=== PATIENT | male | born 1945 | race Caucasian/White ===

== ENCOUNTER 2021-03-15 12:08 | Inpatient (IN) | payer MEDICARE ==
[~2021-03-15] VITALS: Ht 175.3 cm; Wt 74.8 kg
[2021-03-15] MEDS ORDERED: ONDANSETRON HCL INJ 2MG/ML 2ML 2 MG/ML VIAL IV STA (12:25)
[2021-03-15] MEDS ORDERED: SODIUM CHLORIDE 0.9% 1000ML 1,000 ML IV STA (12:25)
[2021-03-15 13:08] LABS: BASOPHILS % 0.2 % (0.0-1.0); EOSINOPHILS # (AUTO) 0.1 (0.0-0.4); EOSINOPHILS % 0.6 % (0.0-6.0); HEMATOCRIT 41.8 % (38.2-49.6); HEMOGLOBIN 13.3 g/dL (14.0-18.0); LYMPHOCYTES # (AUTO) 2.9 (1.0-3.2); LYMPHOCYTES % 16.8 % (18.0-39.1); MEAN CORPUSCULAR HEMOGLOBIN 30.7 pg (28-32); MEAN CORPUSCULAR HGB CONC 31.8 g/dL (31-35); MEAN CORPUSCULAR VOLUME 96.5 fL (81-99); MONOCYTES # (AUTO) 1.4 (0.2-0.8); NEUTROPHILS # (AUTO) 12.5 (2.1-6.9); NEUTROPHILS % 73.8 % (38.7-80.0); PLATELET COUNT 380 x10e3/uL (140-360); RED BLOOD COUNT 4.33 x10e6/uL (4.3-5.7); RED CELL DISTRIBUTION WIDTH 15.2 % (11.7-14.4)
[2021-03-15 13:16] LABS: INR 1.32; PROTHROMBIN TIME 17.1 seconds (11.9-14.5)
[2021-03-15 13:17] LABS: PARTIAL THROMBOPLASTIN TIME 40.5 seconds (23.8-35.5)
[2021-03-15 13:29] LABS: ALBUMIN 3.3 g/dL (3.5-5.0); ANION GAP 17.6 mmol/L (8-16); CALCIUM 8.4 mg/dL (8.4-10.2); CREATININE, SERUM 5.25 mg/dL (0.72-1.25); MAGNESIUM 1.6 MG/DL (1.3-2.1); POTASSIUM 4.6 mmol/L (3.5-5.1)
[2021-03-15 13:35] LABS: CREATINE KINASE MB 1.9 ng/mL (0-5.0)
[2021-03-15] MEDS ORDERED: SODIUM CHLORIDE 0.9% 250ML 250 ML ONE (13:49)
[2021-03-15] MEDS ORDERED: MORPHINE SULFATE INJ 4 MG/ML INJ 1ML IV PRN (17:30)
[2021-03-15] MEDS ORDERED: ONDANSETRON HCL INJ 2MG/ML 2ML 2 MG/ML VIAL IV PRN (17:30)
[2021-03-15] MEDS ORDERED: SODIUM CHLORIDE 0.9% 1000ML 1,000 ML IV SCH (17:30)
[2021-03-15 18:26] LABS: CLARITY,URINE SL CLOUDY (CLEAR); COLOR,URINE YELLOW (YELLOW); KETONES,URINE TRACE (NEGATIVE); LEUKOCYTE ESTERASE ,URINE NEGATIVE (NEGATIVE); NITRITE,URINE NEGATIVE (NEGATIVE); PROTEIN,URINE DIPSTICK >=300 (NEGATIVE); URINE UROBILINOGEN 0.2 mg/dL (0.2 - 1)
[2021-03-15 18:39] LABS: AMORPHOUS SEDIMENT,URINE MODERATE (FEW); BACTERIA,URINE RARE /HPF; EPITHELIAL CELLS,URINE FEW /LPF; RBC,URINE 0-5 /HPF (0-5); WBC,URINE (MAN) 0-5 /HPF (0-5)
[2021-03-15] MEDS: LACTATED RINGER'S 1,000 ML INJ SCH (21:15)
[2021-03-15 21:37] VITALS: BP 139/89
[2021-03-15 23:07] VITALS: BP 139/89
[2021-03-15 23:36] VITALS: BP 139/89
[2021-03-16] VITALS (8 sets, daily range): BP systolic 125–159; BP diastolic 49–70
[2021-03-16 04:58] LABS: BASOPHILS % 0.2 % (0.0-1.0); EOSINOPHILS # (AUTO) 0.1 (0.0-0.4); HEMATOCRIT 37.4 % (38.2-49.6); LYMPHOCYTES # (AUTO) 2.4 (1.0-3.2); MEAN CORPUSCULAR HEMOGLOBIN 30.7 pg (28-32); MEAN CORPUSCULAR HGB CONC 32.1 g/dL (31-35); MEAN CORPUSCULAR VOLUME 95.7 fL (81-99); MONOCYTES # (AUTO) 1.3 (0.2-0.8); MONOCYTES % 11.2 % (4.4-11.3); NEUTROPHILS # (AUTO) 7.5 (2.1-6.9); NEUTROPHILS % 66.2 % (38.7-80.0); PLATELET COUNT 323 x10e3/uL (140-360); RED BLOOD COUNT 3.91 x10e6/uL (4.3-5.7); RED CELL DISTRIBUTION WIDTH 15.2 % (11.7-14.4)
[2021-03-16 05:08] LABS: INR 1.27; PROTHROMBIN TIME 16.6 seconds (11.9-14.5)
[2021-03-16 05:09] LABS: PARTIAL THROMBOPLASTIN TIME 41.4 seconds (23.8-35.5)
[2021-03-16] MEDS: LACTATED RINGER'S 1,000 ML INJ SCH (05:15)
[2021-03-16 05:35] LABS: ALBUMIN 2.7 g/dL (3.5-5.0); ALBUMIN/GLOBULIN RATIO 1.1 (0.8-2.0); ANION GAP 12.4 mmol/L (8-16); CALCIUM 8.1 mg/dL (8.4-10.2); CREATININE, SERUM 5.48 mg/dL (0.72-1.25); POTASSIUM 4.4 mmol/L (3.5-5.1)
[2021-03-16] MEDS ORDERED: DEXTROSE 50% SYRINGE 50 ML IV ONE ×2 (06:01→15:54)
[2021-03-16] MEDS: DEXTROSE 5%/0.9% SOD CHL 1,000 ML IV SCH ×2 (06:45→16:07)
[2021-03-16] MEDS ORDERED: HYDRALAZINE HCL 20 MG/ML VIAL IV PRN (14:30)
[2021-03-16] MEDS ORDERED: CLONIDINE HCL 0.1 MG TAB PO PRN (14:30)
[2021-03-16] MEDS: HYDRALAZINE HCL 25 MG TAB PO SCH ×2 (15:00→21:22)
[2021-03-16] MEDS: AMLODIPINE BESYLATE 5 MG TAB PO SCH (16:14)
[2021-03-16] MEDS: CARVEDILOL 3.125 MG TAB PO SCH (17:00)
[2021-03-16] MEDS: ATORVASTATIN 20 MG TAB PO SCH (21:22)
[2021-03-16] MEDS: GABAPENTIN 300 MG CAP PO SCH (21:22)
[2021-03-16] MEDS: HEPARIN SOD (PORCINE) 5,000 UNIT/ML VIAL SC SCH (22:05)
[2021-03-17] VITALS (8 sets, daily range): BP systolic 158–178; BP diastolic 62–72
[2021-03-17] MEDS: BENZONATATE 100 MG CAP PO PRN ×2 (00:10→21:42)
[2021-03-17] MEDS: DEXTROSE 5%/0.9% SOD CHL 1,000 ML IV SCH ×2 (03:00→12:45)
[2021-03-17 06:49] LABS: ANION GAP 14.3 mmol/L (8-16); CALCIUM 7.7 mg/dL (8.4-10.2); CREATININE, SERUM 5.17 mg/dL (0.72-1.25); POTASSIUM 4.3 mmol/L (3.5-5.1)
[2021-03-17] MEDS: AMLODIPINE BESYLATE 5 MG TAB PO SCH ×2 (09:25→18:00)
[2021-03-17] MEDS: SERTRALINE HCL 100 MG TAB PO SCH (09:25)
[2021-03-17] MEDS: ALLOPURINOL 100 MG TAB PO SCH (09:25)
[2021-03-17] MEDS: HEPARIN SOD (PORCINE) 5,000 UNIT/ML VIAL SC SCH ×2 (09:27→21:15)
[2021-03-17] MEDS: HYDRALAZINE HCL 25 MG TAB PO SCH ×3 (09:31→21:15)
[2021-03-17] MEDS: CARVEDILOL 3.125 MG TAB PO SCH ×2 (09:31→18:00)
[2021-03-17] MEDS ORDERED: ACETAMINOPHEN/CODEINE 300MG - 30MG TAB PO PRN (13:30)
[2021-03-17] MEDS ORDERED: ACETAMINOPHEN 325 MG TAB PO PRN (13:30)
[2021-03-17] MEDS ORDERED: METOPROLOL TARTRATE INJ 1 MG/ML VIAL IV PRN (19:45)
[2021-03-17] MEDS: ATORVASTATIN 20 MG TAB PO SCH (21:15)
[2021-03-17] MEDS: GABAPENTIN 300 MG CAP PO SCH (21:15)
[2021-03-17] MEDS: MORPHINE SULFATE INJ 2 MG/ML SYR IV PRN (21:42)
[2021-03-18] VITALS (8 sets, daily range): BP systolic 147–164; BP diastolic 64–82
[2021-03-18] MEDS: MORPHINE SULFATE INJ 2 MG/ML SYR IV PRN ×5 (00:10→21:05)
[2021-03-18] MEDS: DEXTROSE 5%/0.9% SOD CHL 1,000 ML IV SCH ×2 (05:10→10:38)
[2021-03-18 05:49] LABS: BASOPHILS % 0.3 % (0.0-1.0); EOSINOPHILS # (AUTO) 0.2 (0.0-0.4); HEMATOCRIT 37.5 % (38.2-49.6); HEMOGLOBIN 11.9 g/dL (14.0-18.0); LYMPHOCYTES # (AUTO) 1.8 (1.0-3.2); LYMPHOCYTES % 15.1 % (18.0-39.1); MEAN CORPUSCULAR HEMOGLOBIN 30.1 pg (28-32); MEAN CORPUSCULAR HGB CONC 31.7 g/dL (31-35); MEAN CORPUSCULAR VOLUME 94.9 fL (81-99); MONOCYTES # (AUTO) 1.3 (0.2-0.8); MONOCYTES % 11.1 % (4.4-11.3); NEUTROPHILS # (AUTO) 8.5 (2.1-6.9); NEUTROPHILS % 71.1 % (38.7-80.0); PLATELET COUNT 343 x10e3/uL (140-360); RED BLOOD COUNT 3.95 x10e6/uL (4.3-5.7); RED CELL DISTRIBUTION WIDTH 15.5 % (11.7-14.4)
[2021-03-18 06:21] LABS: ANION GAP 15.4 mmol/L (8-16); CALCIUM 8.3 mg/dL (8.4-10.2); CREATININE, SERUM 4.21 mg/dL (0.72-1.25); POTASSIUM 4.4 mmol/L (3.5-5.1)
[2021-03-18] MEDS: CARVEDILOL 3.125 MG TAB PO SCH (08:00)
[2021-03-18] MEDS: HYDRALAZINE HCL 25 MG TAB PO SCH ×3 (08:54→20:48)
[2021-03-18] MEDS: ALLOPURINOL 100 MG TAB PO SCH (08:54)
[2021-03-18] MEDS: AMLODIPINE BESYLATE 5 MG TAB PO SCH ×2 (08:54→17:38)
[2021-03-18] MEDS: SERTRALINE HCL 100 MG TAB PO SCH (08:54)
[2021-03-18] MEDS: HEPARIN SOD (PORCINE) 5,000 UNIT/ML VIAL SC SCH ×2 (09:00→20:52)
[2021-03-18] MEDS: SODIUM CHLORIDE 0.45% 1,000 ML IV SCH (11:00)
[2021-03-18] MEDS: SODIUM BICARBONATE 650 MG TAB PO SCH ×2 (11:00→17:38)
[2021-03-18] MEDS ORDERED: SODIUM BICARBONATE 650 MG TAB PO SCH (17:00)
[2021-03-18] MEDS: CARVEDILOL 12.5 MG TAB PO SCH (17:00)
[2021-03-18] MEDS: GABAPENTIN 300 MG CAP PO SCH (20:48)
[2021-03-18] MEDS: ATORVASTATIN 20 MG TAB PO SCH (20:48)
[2021-03-19] VITALS: BP 142/70
[2021-03-19] MEDS: SODIUM CHLORIDE 0.45% 1,000 ML IV SCH (00:40)
[2021-03-19 04:00] VITALS: BP 151/77
[2021-03-19 05:19] LABS: BASOPHILS % 0.3 % (0.0-1.0); EOSINOPHILS # (AUTO) 0.3 (0.0-0.4); HEMATOCRIT 35.6 % (38.2-49.6); HEMOGLOBIN 11.2 g/dL (14.0-18.0); LYMPHOCYTES # (AUTO) 1.6 (1.0-3.2); LYMPHOCYTES % 16.8 % (18.0-39.1); MEAN CORPUSCULAR HEMOGLOBIN 30.1 pg (28-32); MEAN CORPUSCULAR HGB CONC 31.5 g/dL (31-35); MEAN CORPUSCULAR VOLUME 95.7 fL (81-99); MONOCYTES # (AUTO) 1.1 (0.2-0.8); MONOCYTES % 11.5 % (4.4-11.3); NEUTROPHILS # (AUTO) 6.6 (2.1-6.9); NEUTROPHILS % 67.8 % (38.7-80.0); PLATELET COUNT 323 x10e3/uL (140-360); RED BLOOD COUNT 3.72 x10e6/uL (4.3-5.7); RED CELL DISTRIBUTION WIDTH 15.6 % (11.7-14.4)
[2021-03-19 05:59] LABS: ANION GAP 16.4 mmol/L (8-16); CALCIUM 8.2 mg/dL (8.4-10.2); CREATININE, SERUM 3.7 mg/dL (0.72-1.25); PHOSPHORUS 5.1 MG/DL (2.3-4.7); POTASSIUM 4.4 mmol/L (3.5-5.1)
[2021-03-19 07:58] VITALS: BP 152/73
[2021-03-19] MEDS: SODIUM BICARBONATE 650 MG TAB PO SCH ×2 (08:24→17:00)
[2021-03-19] MEDS: SERTRALINE HCL 100 MG TAB PO SCH (08:24)
[2021-03-19] MEDS: AMLODIPINE BESYLATE 5 MG TAB PO SCH ×2 (08:24→17:00)
[2021-03-19] MEDS: ALLOPURINOL 100 MG TAB PO SCH (08:24)
[2021-03-19] MEDS: HYDRALAZINE HCL 25 MG TAB PO SCH ×2 (08:24→15:00)
[2021-03-19] MEDS: CARVEDILOL 12.5 MG TAB PO SCH (08:24)
[2021-03-19 08:54] VITALS: BP 152/73
[2021-03-19] MEDS: HEPARIN SOD (PORCINE) 5,000 UNIT/ML VIAL SC SCH (09:00)
[2021-03-19] MEDS ORDERED: LOPERAMIDE HCL 2 MG CAP PO PRN (09:45)
[2021-03-19] MEDS ORDERED: MAGNESIUM SULFATE 2GM/50ML 50 ML IV ONE (10:00)
[2021-03-19] MEDS ORDERED: LOPERAMIDE HCL 2 MG CAP PO ONE (10:20)
[2021-03-19] MEDS: DRONEDARONE 400 MG TAB PO SCH ×2 (11:30→17:00)
[2021-03-19 11:41] VITALS: BP 139/68
[2021-03-19 15:25] VITALS: BP 144/72
[2021-03-19] MEDS ORDERED: METOPROLOL TARTRATE 50 MG TAB PO SCH (17:00)
[2021-03-19] MEDS ORDERED: APIXABAN 5 MG TABLET PO SCH (17:00)
[2021-03-19] MEDS ORDERED: NORVASC5 MG PO (17:01)
[2021-03-19] MEDS ORDERED: ALLOPURINOL100 MG PO (17:01)
[2021-03-19] MEDS ORDERED: ZOLOFT100 MG PO (17:01)
[2021-03-19] MEDS ORDERED: GABAPENTIN300 MG PO (17:01)
[2021-03-19] MEDS ORDERED: LIPITOR20 MG PO (17:01)
[2021-03-19] MEDS ORDERED: MULTAQ 400MG T400 MG PO (17:01)
[2021-03-19] MEDS ORDERED: METOPROLOL TART50 MG PO (17:01)
[2021-03-19] MEDS ORDERED: ELIQUIS5 MG PO (17:01)
[2021-03-19] MEDS ORDERED: HYDRALAZINE HCL25 MG PO (17:01)
[2021-03-19] MEDS ORDERED: SODIUM BICARBO650 MG PO (17:01)
== END 2021-03-19 18:35 | disposition home or self-care (01) | DRG 391 ==
LOC: ER 12:26 → ERHOLD 17:39 → MED/SURG3 20:48
PROVIDERS: ADMIT Internal Medicine; ATTEND Internal Medicine
DX: K52.9 Noninfective gastroenteritis and colitis, unspecified (principal); N17.0 Acute kidney failure with tubular necrosis; E87.1 Hypo-osmolality and hyponatremia; C34.90 Malignant neoplasm of unspecified part of unspecified bronchus or lung; E87.2 Acidosis; I47.1 Supraventricular tachycardia; C64.9 Malignant neoplasm of unspecified kidney, except renal pelvis; N18.4 Chronic kidney disease, stage 4 (severe); I48.0 Paroxysmal atrial fibrillation; Z86.73 Personal history of transient ischemic attack (TIA), and cerebral infarction without residual deficits; I12.9 Hypertensive chronic kidney disease with stage 1 through stage 4 chronic kidney disease, or unspecified chronic kidney disease; E11.22 Type 2 diabetes mellitus with diabetic chronic kidney disease; N18.9 Chronic kidney disease, unspecified; E11.649 Type 2 diabetes mellitus with hypoglycemia without coma; R53.81 Other malaise; Z79.84 Long term (current) use of oral hypoglycemic drugs; E83.42 Hypomagnesemia; E83.39 Other disorders of phosphorus metabolism
CPT/HCPCS: 36415; 51700; 71045; 74176; 80048; 80053; 81001; 82550; 82553; 82948; 83735; 84100; 84300; 84484; 85025; 85610; 85730; 86705; 86707; 87040; 87086; 87350; 87493; 93005; 93306; 96361; 99284; J1644; J2270; J2405; J3475; J7030; J7042; J7050; J7121; J7799

== ENCOUNTER 2021-03-22 14:14 | Observation (INO) | payer MEDICARE ==
[~2021-03-22] VITALS: Ht 175.3 cm; Wt 74.8 kg
[~2021-03-22 14:14] MED LIST: ALLOPURINOL100 MG PO; ELIQUIS5 MG PO; GABAPENTIN300 MG PO; HYDRALAZINE HCL25 MG PO; LIPITOR20 MG PO; METOPROLOL TART50 MG PO; MULTAQ 400MG T400 MG PO; NORVASC5 MG PO; SODIUM BICARBO650 MG PO; ZOLOFT100 MG PO
[2021-03-22 14:49] LABS: BASOPHILS % 0.2 % (0.0-1.0); EOSINOPHILS % 0.1 % (0.0-6.0); HEMATOCRIT 38.7 % (38.2-49.6); HEMOGLOBIN 12.5 g/dL (14.0-18.0); LYMPHOCYTES # (AUTO) 0.8 (1.0-3.2); LYMPHOCYTES % 5.4 % (18.0-39.1); MEAN CORPUSCULAR HEMOGLOBIN 30.4 pg (28-32); MEAN CORPUSCULAR HGB CONC 32.3 g/dL (31-35); MEAN CORPUSCULAR VOLUME 94.2 fL (81-99); MONOCYTES # (AUTO) 0.7 (0.2-0.8); MONOCYTES % 4.6 % (4.4-11.3); NEUTROPHILS # (AUTO) 13.5 (2.1-6.9); NEUTROPHILS % 89.3 % (38.7-80.0); PLATELET COUNT 412 x10e3/uL (140-360); RED BLOOD COUNT 4.11 x10e6/uL (4.3-5.7); RED CELL DISTRIBUTION WIDTH 15.9 % (11.7-14.4)
[2021-03-22 15:22] LABS: ALBUMIN 2.9 g/dL (3.5-5.0); ALBUMIN/GLOBULIN RATIO 0.9 (0.8-2.0); ANION GAP 13.5 mmol/L (8-16); CALCIUM 8.5 mg/dL (8.4-10.2); CREATININE, SERUM 2.79 mg/dL (0.72-1.25); POTASSIUM 3.5 mmol/L (3.5-5.1)
[2021-03-22 15:54] LABS: CLARITY,URINE SL CLOUDY (CLEAR); COLOR,URINE STRAW (YELLOW)
[2021-03-22 15:55] LABS: KETONES,URINE NEGATIVE (NEGATIVE); LEUKOCYTE ESTERASE ,URINE NEGATIVE (NEGATIVE); NITRITE,URINE NEGATIVE (NEGATIVE); PROTEIN,URINE DIPSTICK >=300 (NEGATIVE); URINE UROBILINOGEN 0.2 mg/dL (0.2 - 1)
[2021-03-22 16:08] LABS: AMORPHOUS SEDIMENT,URINE MODERATE (FEW); BACTERIA,URINE MANY /HPF; EPITHELIAL CELLS,URINE MODERATE /LPF
[2021-03-22] MEDS ORDERED: DEXTROSE 50% SYRINGE 50 ML IV ONE (16:28)
[2021-03-22] MEDS ORDERED: DEXTROSE 10% 1,000 ML IV ONE (16:45)
[2021-03-22] MEDS ORDERED: CEFTRIAXONE 1 GM VIAL IM ONE (16:45)
[2021-03-22] MEDS ORDERED: ATORVASTATIN 20 MG TAB PO SCH (21:00)
[2021-03-22] MEDS ORDERED: ACETAMINOPHEN 325 MG TAB PO PRN (21:00)
[2021-03-22] MEDS ORDERED: ONDANSETRON HCL INJ 2MG/ML 2ML 2 MG/ML VIAL IV PRN (21:00)
[2021-03-22] MEDS ORDERED: HYDRALAZINE HCL 20 MG/ML VIAL IV PRN (21:00)
[2021-03-22] MEDS ORDERED: DEXTROSE 50% SYRINGE 50 ML IV PRN (21:15)
[2021-03-22] MEDS ORDERED: METOPROLOL TARTRATE INJ 1 MG/ML VIAL IV PRN (21:45)
[2021-03-22] MEDS ORDERED: METOPROLOL TARTRATE 50 MG TAB PO SCH (21:45)
[2021-03-22] MEDS ORDERED: METOPROLOL TARTRATE INJ 1 MG/ML VIAL ONE (22:06)
[2021-03-22] MEDS: GABAPENTIN 300 MG CAP PO SCH (22:57)
[2021-03-23] MEDS ORDERED: DEXTROSE 10% 1,000 ML IV ONE (02:09)
[2021-03-23 06:16] LABS: BASOPHILS % 0.2 % (0.0-1.0); EOSINOPHILS # (AUTO) 0.1 (0.0-0.4); EOSINOPHILS % 0.8 % (0.0-6.0); HEMATOCRIT 39.3 % (38.2-49.6); HEMOGLOBIN 12.7 g/dL (14.0-18.0); LYMPHOCYTES # (AUTO) 1.8 (1.0-3.2); LYMPHOCYTES % 12.7 % (18.0-39.1); MEAN CORPUSCULAR HEMOGLOBIN 30.1 pg (28-32); MEAN CORPUSCULAR HGB CONC 32.3 g/dL (31-35); MEAN CORPUSCULAR VOLUME 93.1 fL (81-99); MONOCYTES # (AUTO) 1.3 (0.2-0.8); MONOCYTES % 9.3 % (4.4-11.3); NEUTROPHILS # (AUTO) 10.6 (2.1-6.9); NEUTROPHILS % 76.6 % (38.7-80.0); PLATELET COUNT 420 x10e3/uL (140-360); RED BLOOD COUNT 4.22 x10e6/uL (4.3-5.7); RED CELL DISTRIBUTION WIDTH 15.9 % (11.7-14.4)
[2021-03-23 06:29] LABS: CREATINE KINASE MB 3.9 ng/mL (0-5.0)
[2021-03-23] MEDS ORDERED: DEXTROSE 5% 1,000 ML IV SCH (07:00)
[2021-03-23 07:16] LABS: ALBUMIN 2.7 g/dL (3.5-5.0); ALBUMIN/GLOBULIN RATIO 0.8 (0.8-2.0); ANION GAP 16.6 mmol/L (8-16); CALCIUM 8.5 mg/dL (8.4-10.2); CREATININE, SERUM 2.5 mg/dL (0.72-1.25); POTASSIUM 3.6 mmol/L (3.5-5.1)
[2021-03-23] MEDS: APIXABAN 5 MG TABLET PO SCH ×2 (09:18→17:16)
[2021-03-23] MEDS: SODIUM BICARBONATE 650 MG TAB PO SCH ×2 (09:18→17:15)
[2021-03-23] MEDS: AMLODIPINE BESYLATE 5 MG TAB PO SCH ×2 (09:18→17:14)
[2021-03-23] MEDS: SERTRALINE HCL 100 MG TAB PO SCH (09:19)
[2021-03-23] MEDS: METOPROLOL TARTRATE 50 MG TAB PO SCH ×2 (09:19→17:14)
[2021-03-23] MEDS: ALLOPURINOL 100 MG TAB PO SCH (09:19)
[2021-03-23] MEDS: DRONEDARONE 400 MG TAB PO SCH ×2 (09:21→17:15)
[2021-03-23] MEDS ORDERED: LOPERAMIDE HCL 2 MG CAP PO PRN (16:00)
[2021-03-23 16:15] VITALS: BP 147/88
[2021-03-23 16:19] VITALS: BP 147/88
[2021-03-23 16:20] VITALS: BP 147/88
[2021-03-23 17:55] VITALS: BP 143/89
[2021-03-23 18:16] VITALS: BP 143/89
[2021-03-23 20:00] VITALS: BP_SYST 134; BP_SYST 137; BP_DIAS 64
[2021-03-23] MEDS: GABAPENTIN 300 MG CAP PO SCH (21:19)
[2021-03-24] VITALS: BP 151/73
[2021-03-24 04:00] VITALS: BP 138/66
[2021-03-24 06:04] LABS: BASOPHILS # (AUTO) 0.1 (0.0-0.1); BASOPHILS % 0.3 % (0.0-1.0); EOSINOPHILS # (AUTO) 0.2 (0.0-0.4); EOSINOPHILS % 1.2 % (0.0-6.0); HEMATOCRIT 36.1 % (38.2-49.6); HEMOGLOBIN 11.7 g/dL (14.0-18.0); LYMPHOCYTES # (AUTO) 2.9 (1.0-3.2); MEAN CORPUSCULAR HEMOGLOBIN 30.5 pg (28-32); MEAN CORPUSCULAR HGB CONC 32.4 g/dL (31-35); MONOCYTES # (AUTO) 1.4 (0.2-0.8); MONOCYTES % 9.5 % (4.4-11.3); NEUTROPHILS # (AUTO) 9.9 (2.1-6.9); NEUTROPHILS % 68.6 % (38.7-80.0); PLATELET COUNT 410 x10e3/uL (140-360); RED BLOOD COUNT 3.84 x10e6/uL (4.3-5.7); RED CELL DISTRIBUTION WIDTH 15.9 % (11.7-14.4)
[2021-03-24 06:20] LABS: ALBUMIN 2.6 g/dL (3.5-5.0); ALBUMIN/GLOBULIN RATIO 0.8 (0.8-2.0); ANION GAP 15.7 mmol/L (8-16); CALCIUM 8.4 mg/dL (8.4-10.2); CREATININE, SERUM 2.3 mg/dL (0.72-1.25); POTASSIUM 3.7 mmol/L (3.5-5.1)
[2021-03-24] MEDS: DRONEDARONE 400 MG TAB PO SCH ×2 (08:00→17:00)
[2021-03-24 08:05] VITALS: BP 132/76
[2021-03-24 09:00] VITALS: BP 132/76
[2021-03-24] MEDS: APIXABAN 5 MG TABLET PO SCH ×2 (09:00→17:00)
[2021-03-24] MEDS: SERTRALINE HCL 100 MG TAB PO SCH (09:00)
[2021-03-24] MEDS: SODIUM BICARBONATE 650 MG TAB PO SCH ×2 (09:00→17:00)
[2021-03-24] MEDS: METOPROLOL TARTRATE 50 MG TAB PO SCH ×2 (09:00→17:00)
[2021-03-24] MEDS: AMLODIPINE BESYLATE 5 MG TAB PO SCH ×2 (09:00→17:00)
[2021-03-24] MEDS: ALLOPURINOL 100 MG TAB PO SCH (09:00)
[2021-03-24] MEDS ORDERED: CEFTRIAXONE 1 GM VIAL IM NR (09:30)
[2021-03-24 12:28] VITALS: BP 128/65
[2021-03-24] MEDS ORDERED: KEFLEX125 MG/5 M PO (15:29)
[2021-03-24 16:12] VITALS: BP 159/82
== END 2021-03-24 17:08 | disposition home or self-care (01) ==
LOC: ER 14:45 → ERHOLD 17:34 → MED/SURG2 03-23 15:42
PROVIDERS: ADMIT Internal Medicine; ATTEND Internal Medicine
DX: E11.649 Type 2 diabetes mellitus with hypoglycemia without coma (principal); N39.0 Urinary tract infection, site not specified; I10 Essential (primary) hypertension; I48.91 Unspecified atrial fibrillation; K52.9 Noninfective gastroenteritis and colitis, unspecified; C64.9 Malignant neoplasm of unspecified kidney, except renal pelvis; Z86.73 Personal history of transient ischemic attack (TIA), and cerebral infarction without residual deficits; B96.20 Unspecified Escherichia coli [E. coli] as the cause of diseases classified elsewhere; Z79.84 Long term (current) use of oral hypoglycemic drugs; Z20.822 Contact with and (suspected) exposure to COVID-19
CPT/HCPCS: 36415 ×3; 70450; 71045; 80053 ×3; 81001; 82550; 82553; 82948 ×3; 84484; 85025 ×3; 87086; 87186; 99284; G0378 ×3; J0696 ×2; J7070; J7799; U0002

== ENCOUNTER 2021-03-29 16:16 | Inpatient (IN) | payer MEDICARE ==
[~2021-03-29] VITALS: Ht 327.7 cm; Wt 74.8 kg
[~2021-03-29 16:16] MED LIST changes: +KEFLEX125 MG/5 M PO
[2021-03-29 18:38] LABS: BASOPHILS % 0.2 % (0.0-1.0); EOSINOPHILS # (AUTO) 0.1 (0.0-0.4); EOSINOPHILS % 0.5 % (0.0-6.0); HEMOGLOBIN 12.3 g/dL (14.0-18.0); LYMPHOCYTES # (AUTO) 2.1 (1.0-3.2); LYMPHOCYTES % 17.8 % (18.0-39.1); MEAN CORPUSCULAR HGB CONC 30.8 g/dL (31-35); MEAN CORPUSCULAR VOLUME 97.6 fL (81-99); MONOCYTES % 8.5 % (4.4-11.3); NEUTROPHILS # (AUTO) 8.7 (2.1-6.9); NEUTROPHILS % 72.6 % (38.7-80.0); PLATELET COUNT 383 x10e3/uL (140-360); RED CELL DISTRIBUTION WIDTH 15.8 % (11.7-14.4)
[2021-03-29] MEDS ORDERED: SODIUM CHLORIDE 0.9% 1000ML 1,000 ML IV ONE (18:45)
[2021-03-29] MEDS ORDERED: SODIUM CHLORIDE 0.9% 1000ML 1,000 ML ONE (18:46)
[2021-03-29 19:02] LABS: ALBUMIN 2.8 g/dL (3.5-5.0); ALBUMIN/GLOBULIN RATIO 0.8 (0.8-2.0); ANION GAP 18.3 mmol/L (8-16); CALCIUM 8.3 mg/dL (8.4-10.2); CREATININE, SERUM 6.13 mg/dL (0.72-1.25); POTASSIUM 4.3 mmol/L (3.5-5.1)
[2021-03-29] MEDS ORDERED: SODIUM BICARBONATE 8.4% INJ 50 ML SYR IV STA (19:11)
[2021-03-29] MEDS ORDERED: ASPIRIN 325 MG TAB PO ONE (19:15)
[2021-03-29] MEDS ORDERED: SODIUM CHLORIDE 0.9% 1000ML 1,000 ML IV SCH ×2 (19:30→20:15)
[2021-03-29] MEDS ORDERED: HEPARIN 25,000 UNIT 1,000 UNIT in DEXTROSE 5% 250ML 250 ML IV SCH ×2 (19:45→23:00)
[2021-03-29] MEDS ORDERED: ONDANSETRON HCL INJ 2MG/ML 2ML 2 MG/ML VIAL IV PRN (20:15)
[2021-03-29] MEDS ORDERED: HEPARIN 25,000 UNIT DRIP IV ONE (20:36)
[2021-03-29 20:37] LABS: CLARITY,URINE SL CLOUDY (CLEAR); COLOR,URINE AMBER (YELLOW); KETONES,URINE 1+ (NEGATIVE); LEUKOCYTE ESTERASE ,URINE NEGATIVE (NEGATIVE); NITRITE,URINE NEGATIVE (NEGATIVE); PROTEIN,URINE DIPSTICK >=300 (NEGATIVE)
[2021-03-29 20:38] LABS: URINE UROBILINOGEN 0.2 mg/dL (0.2 - 1)
[2021-03-29 20:53] LABS: AMORPHOUS SEDIMENT,URINE MANY (FEW); BACTERIA,URINE MANY /HPF; CALCIUM OXALATE CRYSTALS,UR FEW (FEW); EPITHELIAL CELLS,URINE MODERATE /LPF
[2021-03-29] MEDS ORDERED: SODIUM BICARBONATE 8.4% INJ 50 ML SYR IV ONE (20:58)
[2021-03-29] MEDS ORDERED: DEXTROSE 5% 1,000 ML IV ONE (21:00)
[2021-03-29] MEDS ORDERED: CEFTRIAXONE 1 GM VIAL IV ONE (21:00)
[2021-03-29 21:10] LABS: INR 1.36; PROTHROMBIN TIME 17.5 seconds (11.9-14.5)
[2021-03-29] MEDS ORDERED: CEFTRIAXONE 1 GM in SODIUM CHLORIDE 0.9% 50ML 50 ML IV ONE (21:15)
[2021-03-29] MEDS ORDERED: SODIUM BICARBONATE 8.4% SYRING 100 ML ONE (21:52)
[2021-03-29] MEDS ORDERED: SODIUM BICARBONATE 8.4% SYRING 150 ML ONE (21:54)
[2021-03-29] MEDS ORDERED: SODIUM BICARBONATE 8.4% SYRING 50 ML ONE (22:01)
[2021-03-29] MEDS ORDERED: SODIUM CHLORIDE 0.9% 100 ML ONE (22:38)
[2021-03-29] MEDS: HEPARIN 25,000 UNIT 25,000 UNIT in DEXTROSE 5% 250ML 250 ML IV PRN (23:46)
[2021-03-30] VITALS (11 sets, daily range): BP systolic 111–149; BP diastolic 56–78
[2021-03-30 10:57] LABS: BASOPHILS % 0.1 % (0.0-1.0); EOSINOPHILS # (AUTO) 0.1 (0.0-0.4); EOSINOPHILS % 1.1 % (0.0-6.0); HEMATOCRIT 33.7 % (38.2-49.6); HEMOGLOBIN 10.8 g/dL (14.0-18.0); LYMPHOCYTES # (AUTO) 1.2 (1.0-3.2); LYMPHOCYTES % 14.6 % (18.0-39.1); MEAN CORPUSCULAR HEMOGLOBIN 30.1 pg (28-32); MEAN CORPUSCULAR VOLUME 93.9 fL (81-99); MONOCYTES # (AUTO) 0.8 (0.2-0.8); MONOCYTES % 9.5 % (4.4-11.3); NEUTROPHILS # (AUTO) 6.2 (2.1-6.9); NEUTROPHILS % 74.3 % (38.7-80.0); PLATELET COUNT 354 x10e3/uL (140-360); RED BLOOD COUNT 3.59 x10e6/uL (4.3-5.7); RED CELL DISTRIBUTION WIDTH 15.4 % (11.7-14.4)
[2021-03-30 11:28] LABS: ANION GAP 16.2 mmol/L (8-16); CALCIUM 7.4 mg/dL (8.4-10.2); CREATININE, SERUM 5.62 mg/dL (0.72-1.25); POTASSIUM 3.2 mmol/L (3.5-5.1)
[2021-03-30] MEDS ORDERED: POTASSIUM CHLORIDE 20 MEQ TAB CR PO STA (11:34)
[2021-03-30 12:02] LABS: ALBUMIN 2.4 g/dL (3.5-5.0); BILIRUBIN,DIRECT 0.2 mg/dL (0.0-0.5)
[2021-03-30 12:13] LABS: CREATINE KINASE MB 3.7 ng/mL (0-5.0)
[2021-03-30] MEDS ORDERED: ONDANSETRON HCL INJ 2MG/ML 2ML 2 MG/ML VIAL IV PRN (13:15)
[2021-03-30] MEDS: SODIUM BICARBONATE 8.4% SYRING 150 ML in DEXTROSE 5% 1,000 ML IV SCH (13:39)
[2021-03-30] MEDS ORDERED: DEXTROSE 50% SYRINGE 50 ML IV PRN (14:15)
[2021-03-30] MEDS: AMLODIPINE BESYLATE 5 MG TAB PO SCH (17:35)
[2021-03-30] MEDS: METOPROLOL TARTRATE 50 MG TAB PO SCH (17:35)
[2021-03-30] MEDS ORDERED: HEPARIN 25,000 UNIT DRIP IV ONE (23:41)
[2021-03-31] VITALS (9 sets, daily range): BP systolic 133–162; BP diastolic 74–90
[2021-03-31] MEDS: HEPARIN 25,000 UNIT 25,000 UNIT in DEXTROSE 5% 250ML 250 ML IV PRN (00:12)
[2021-03-31] MEDS: SODIUM BICARBONATE 8.4% SYRING 150 ML in DEXTROSE 5% 1,000 ML IV SCH ×3 (01:00→18:18)
[2021-03-31 02:34] LABS: CREATINE KINASE MB 3.5 ng/mL (0-5.0)
[2021-03-31 06:23] LABS: BASOPHILS % 0.2 % (0.0-1.0); EOSINOPHILS # (AUTO) 0.1 (0.0-0.4); EOSINOPHILS % 1.4 % (0.0-6.0); HEMATOCRIT 30.5 % (38.2-49.6); HEMOGLOBIN 9.9 g/dL (14.0-18.0); LYMPHOCYTES # (AUTO) 2.6 (1.0-3.2); LYMPHOCYTES % 32.5 % (18.0-39.1); MEAN CORPUSCULAR HGB CONC 32.5 g/dL (31-35); MEAN CORPUSCULAR VOLUME 92.4 fL (81-99); MONOCYTES # (AUTO) 0.8 (0.2-0.8); MONOCYTES % 10.3 % (4.4-11.3); NEUTROPHILS # (AUTO) 4.5 (2.1-6.9); NEUTROPHILS % 55.4 % (38.7-80.0); PLATELET COUNT 306 x10e3/uL (140-360); RED CELL DISTRIBUTION WIDTH 15.2 % (11.7-14.4)
[2021-03-31 06:47] LABS: ALBUMIN 2.4 g/dL (3.5-5.0); ANION GAP 16.1 mmol/L (8-16); CALCIUM 7.2 mg/dL (8.4-10.2); CREATININE, SERUM 5.47 mg/dL (0.72-1.25); POTASSIUM 3.1 mmol/L (3.5-5.1)
[2021-03-31] MEDS: METOPROLOL TARTRATE 50 MG TAB PO SCH ×2 (09:00→17:00)
[2021-03-31] MEDS: ALLOPURINOL 100 MG TAB PO SCH (09:00)
[2021-03-31] MEDS: AMLODIPINE BESYLATE 5 MG TAB PO SCH ×2 (09:00→17:00)
[2021-03-31] MEDS ORDERED: POTASSIUM CHLORIDE 10MEQ EA PO ONE (11:30)
[2021-03-31] MEDS: LOPERAMIDE HCL 2 MG CAP PO PRN ×2 (14:44→19:28)
[2021-03-31] MEDS: ACETAMINOPHEN 325 MG TAB PO PRN (20:35)
[2021-03-31] MEDS ORDERED: DICYCLOMINE HCL 20 MG TAB PO ONE (23:30)
[2021-04-01] VITALS (8 sets, daily range): BP systolic 141–163; BP diastolic 69–78
[2021-04-01] MEDS: SODIUM BICARBONATE 8.4% SYRING 150 ML in DEXTROSE 5% 1,000 ML IV SCH (02:50)
[2021-04-01] MEDS: ACETAMINOPHEN 325 MG TAB PO PRN (04:35)
[2021-04-01] MEDS: LOPERAMIDE HCL 2 MG CAP PO PRN ×2 (04:35→14:32)
[2021-04-01 08:28] LABS: ALBUMIN 2.5 g/dL (3.5-5.0); ALBUMIN/GLOBULIN RATIO 0.9 (0.8-2.0); ANION GAP 16.9 mmol/L (8-16); CREATININE, SERUM 4.96 mg/dL (0.72-1.25)
[2021-04-01 08:38] LABS: POTASSIUM 2.9 mmol/L (3.5-5.1)
[2021-04-01 08:39] LABS: CALCIUM 6.9 mg/dL (8.4-10.2)
[2021-04-01] MEDS: DICYCLOMINE HCL 20 MG TAB PO SCH ×4 (09:20→20:32)
[2021-04-01] MEDS: AMLODIPINE BESYLATE 5 MG TAB PO SCH ×2 (09:20→17:50)
[2021-04-01] MEDS: METOPROLOL TARTRATE 50 MG TAB PO SCH ×2 (09:20→16:02)
[2021-04-01] MEDS: ALLOPURINOL 100 MG TAB PO SCH (09:20)
[2021-04-01] MEDS ORDERED: SODIUM CHLORIDE 0.9% 1000ML 1,000 ML ONE (09:36)
[2021-04-01] MEDS ORDERED: POTASSIUM CHLORIDE 20MEQ/100ML 200 ML IV ONE (10:00)
[2021-04-01] MEDS ORDERED: MAGNESIUM SULFATE 2GM/50ML 50 ML IV ONE (15:00)
[2021-04-01] MEDS: APIXABAN 5 MG TABLET PO SCH (20:20)
[2021-04-02] VITALS: BP 152/74
[2021-04-02] MEDS: LOPERAMIDE HCL 2 MG CAP PO PRN (00:45)
[2021-04-02] MEDS ORDERED: LOPERAMIDE HCL 2 MG CAP PO PRN (01:30)
[2021-04-02 04:00] VITALS: BP 139/81
[2021-04-02 06:06] LABS: BASOPHILS % 0.2 % (0.0-1.0); EOSINOPHILS # (AUTO) 0.2 (0.0-0.4); EOSINOPHILS % 1.7 % (0.0-6.0); HEMATOCRIT 29.2 % (38.2-49.6); HEMOGLOBIN 9.4 g/dL (14.0-18.0); LYMPHOCYTES # (AUTO) 2.5 (1.0-3.2); LYMPHOCYTES % 28.6 % (18.0-39.1); MEAN CORPUSCULAR HEMOGLOBIN 29.8 pg (28-32); MEAN CORPUSCULAR HGB CONC 32.2 g/dL (31-35); MEAN CORPUSCULAR VOLUME 92.7 fL (81-99); MONOCYTES # (AUTO) 1.1 (0.2-0.8); NEUTROPHILS # (AUTO) 5.1 (2.1-6.9); NEUTROPHILS % 57.2 % (38.7-80.0); PLATELET COUNT 295 x10e3/uL (140-360); RED BLOOD COUNT 3.15 x10e6/uL (4.3-5.7); RED CELL DISTRIBUTION WIDTH 14.8 % (11.7-14.4)
[2021-04-02 06:21] LABS: ANION GAP 14.4 mmol/L (8-16); CALCIUM 7.2 mg/dL (8.4-10.2); CREATININE, SERUM 4.55 mg/dL (0.72-1.25); MAGNESIUM 1.6 MG/DL (1.3-2.1); POTASSIUM 3.4 mmol/L (3.5-5.1)
[2021-04-02 07:55] VITALS: BP 146/85
[2021-04-02 08:45] LABS: CREATININE,URINE RANDOM 97.67 mg/dL (63-166)
[2021-04-02] MEDS: METOPROLOL TARTRATE 50 MG TAB PO SCH ×2 (08:51→16:38)
[2021-04-02] MEDS: DICYCLOMINE HCL 20 MG TAB PO SCH ×3 (08:51→17:30)
[2021-04-02] MEDS: AMLODIPINE BESYLATE 5 MG TAB PO SCH ×2 (08:51→16:38)
[2021-04-02] MEDS: APIXABAN 5 MG TABLET PO SCH ×2 (08:51→16:38)
[2021-04-02] MEDS: ALLOPURINOL 100 MG TAB PO SCH (08:51)
[2021-04-02] MEDS ORDERED: LOPERAMIDE HCL 2 MG CAP PO SCH (09:00)
[2021-04-02 09:04] VITALS: BP 140/85
[2021-04-02] MEDS: CHOLESTYRAMINE 4 GM PACKET PO SCH ×2 (09:42→17:00)
[2021-04-02 11:31] VITALS: BP 142/7
[2021-04-02] MEDS ORDERED: POTASSIUM CHLORIDE 20 MEQ TAB CR PO NR (14:15)
[2021-04-02 15:51] VITALS: BP 163/84
== END 2021-04-02 18:20 | disposition home or self-care (01) | DRG 682 ==
LOC: ER 17:16 → ERHOLD 21:59 → MED/SURG 03-30 00:05
PROVIDERS: ADMIT Internal Medicine; ATTEND Internal Medicine
DX: N17.9 Acute kidney failure, unspecified (principal); I21.A1 Myocardial infarction type 2; E87.2 Acidosis; C64.9 Malignant neoplasm of unspecified kidney, except renal pelvis; K52.1 Toxic gastroenteritis and colitis; I48.91 Unspecified atrial fibrillation; I10 Essential (primary) hypertension; E87.6 Hypokalemia; T45.1X5A Adverse effect of antineoplastic and immunosuppressive drugs, initial encounter; Z79.01 Long term (current) use of anticoagulants; E11.9 Type 2 diabetes mellitus without complications; Z86.73 Personal history of transient ischemic attack (TIA), and cerebral infarction without residual deficits; E86.0 Dehydration; Z20.822 Contact with and (suspected) exposure to COVID-19; E11.22 Type 2 diabetes mellitus with diabetic chronic kidney disease; I12.9 Hypertensive chronic kidney disease with stage 1 through stage 4 chronic kidney disease, or unspecified chronic kidney disease; N18.9 Chronic kidney disease, unspecified
CPT/HCPCS: 36415; 51700; 71045; 74176; 80048; 80053; 80076; 81001; 82550; 82553; 82575; 82948; 83605; 83735; 83880; 83993; 84484; 85025; 85610; 85730; 87040; 87045; 87086; 87177; 87493; 93005; 99251; 99284; J0696; J3475; J3480; J7030; J7050; J7070

== ENCOUNTER 2024-10-10 19:51 | Inpatient (IN) | payer MEDICARE ==
[~2024-10-10] VITALS: Ht 175.3 cm; Wt 72.6 kg
[2024-10-10 20:22] LABS: BASOPHILS # (AUTO) 0.1 (0.0-0.1); BASOPHILS % 0.3 % (0.0-1.0); EOSINOPHILS # (AUTO) 0.3 (0.0-0.4); EOSINOPHILS % 2.2 % (0.0-6.0); HEMATOCRIT 28.7 % (38.2-49.6); HEMOGLOBIN 8.9 g/dL (14.0-18.0); LYMPHOCYTES % 6.7 % (18.0-39.1); MEAN CORPUSCULAR HEMOGLOBIN 26.3 pg (28-32); MEAN CORPUSCULAR VOLUME 84.7 fL (81-99); MONOCYTES # (AUTO) 1.1 (0.2-0.8); MONOCYTES % 7.6 % (4.4-11.3); NEUTROPHILS # (AUTO) 12.1 (2.1-6.9); NEUTROPHILS % 82.8 % (38.7-80.0); PLATELET COUNT 482 x10e3/uL (140-360); RED BLOOD COUNT 3.39 x10e6/uL (4.3-5.7); WHITE BLOOD COUNT 14.58 x10e3/uL (4.8-10.8)
[2024-10-10] MEDS: SODIUM CHLORIDE 0.9% 1000ML 1,000 ML IV STA (20:42)
[2024-10-10] MEDS: ACETAMINOPHEN 325 MG TAB PO STA (20:43)
[2024-10-10 20:44] LABS: ALBUMIN 2.8 g/dL (3.5-5.0); ALBUMIN/GLOBULIN RATIO 0.7 (0.8-2.0); ANION GAP 19.8 mmol/L (8-16); BILIRUBIN,TOTAL 0.6 mg/dL (0.2-1.2); CALCIUM 9.4 mg/dL (8.4-10.2); CREATININE, SERUM 2.27 mg/dL (0.72-1.25); POTASSIUM 4.8 mmol/L (3.5-5.1); TOTAL PROTEIN 6.9 g/dL (6.5-8.1)
[2024-10-10 20:51] LABS: TROPONIN I 0.011 ng/mL (0-0.300)
[2024-10-10] MEDS ORDERED: IOPAMIDOL 370 MG/ML 100 ML INFUS..BTL INJ ONE (21:17)
[2024-10-11] VITALS (10 sets, daily range): BP systolic 117–146; BP diastolic 57–78; PULSE 71–95; RESP 16–25; TEMP 97.2–99.2; O2SAT 90–100
[2024-10-11] MEDS ORDERED: Morphine 4mg INJECTION 4 MG/ML INJ IV PRN (00:15)
[2024-10-11] MEDS: SODIUM CHLORIDE 0.9% 1000ML 1,000 ML IV SCH (02:24)
[2024-10-11] MEDS ORDERED: ASPIRIN81 MG PO (02:34)
[2024-10-11] MEDS ORDERED: FUROSEMIDE40 MG PO (02:35)
[2024-10-11] MEDS ORDERED: NIFEDIPINE10 MG PO (02:36)
[2024-10-11] MEDS ORDERED: OMEPRAZOLE40 MG PO (02:37)
[2024-10-11] MEDS ORDERED: OZEMPIC1 MG/0.71 SC (02:38)
[2024-10-11] MEDS ORDERED: SODIUM BICARBO650 MG PO (02:39)
[2024-10-11] MEDS ORDERED: VIAGRA100 MG PO (02:40)
[2024-10-11] MEDS ORDERED: VITAMIN C1000 MG PO (02:41)
[2024-10-11] MEDS ORDERED: VALTREX500 MG PO (02:41)
[2024-10-11] MEDS ORDERED: FEROSUL325 MG PO (02:44)
[2024-10-11 08:07] LABS: TROPONIN I 0.012 ng/mL (0-0.300)
[2024-10-11 14:55] LABS: TROPONIN I 0.015 ng/mL (0-0.300)
[2024-10-11 15:18] LABS: % IRON SATURATION 7 % (15-50); IRON 18 ug/dL (65-175); TOTAL IRON BINDING CAPACITY 255 ug/dL (261-478); TRANSFERRIN 182 mg/dL (174-364)
[2024-10-11 15:19] LABS: FOLATE 11.5 ng/mL (7.0-15.4)
[2024-10-11] MEDS: METHYLPREDNISOLONE SOD SUCC 125 MG/2ML VIAL IV SCH (15:56)
[2024-10-11] MEDS: APIXABAN 5 MG TABLET PO SCH (16:53)
[2024-10-11] MEDS: SODIUM BICARBONATE 650 MG TAB PO SCH (16:53)
[2024-10-11] MEDS: FUROSEMIDE 40 MG TAB PO SCH (16:54)
[2024-10-11] MEDS: ONDANSETRON HCL INJ 2MG/ML 2ML 2 MG/ML VIAL IV PRN (17:17)
[2024-10-11] MEDS ORDERED: DEXTROSE 50% SYRINGE 50 ML IV PRN (23:00)
[2024-10-12] VITALS (8 sets, daily range): BP systolic 127–156; BP diastolic 65–84; PULSE 62–78; RESP 16–21; TEMP 97.3–98.3; O2SAT 95–100
[2024-10-12 07:07] LABS: BASOPHILS % 0.3 % (0.0-1.0); HEMATOCRIT 24.8 % (38.2-49.6); LYMPHOCYTES # (AUTO) 0.8 (1.0-3.2); LYMPHOCYTES % 13.6 % (18.0-39.1); MEAN CORPUSCULAR HEMOGLOBIN 25.8 pg (28-32); MEAN CORPUSCULAR HGB CONC 30.2 g/dL (31-35); MEAN CORPUSCULAR VOLUME 85.2 fL (81-99); MONOCYTES # (AUTO) 0.3 (0.2-0.8); MONOCYTES % 5.4 % (4.4-11.3); NEUTROPHILS # (AUTO) 4.8 (2.1-6.9); NEUTROPHILS % 80.4 % (38.7-80.0); PLATELET COUNT 424 x10e3/uL (140-360); RED BLOOD COUNT 2.91 x10e6/uL (4.3-5.7); RED CELL DISTRIBUTION WIDTH 13.9 % (11.7-14.4)
[2024-10-12 07:09] LABS: HEMOGLOBIN 7.5 g/dL (14.0-18.0); WHITE BLOOD COUNT 5.97 x10e3/uL (4.8-10.8)
[2024-10-12 07:38] LABS: ALBUMIN 2.3 g/dL (3.5-5.0); ALBUMIN/GLOBULIN RATIO 0.7 (0.8-2.0); ANION GAP 16.1 mmol/L (8-16); BILIRUBIN,TOTAL 0.4 mg/dL (0.2-1.2); CALCIUM 9.2 mg/dL (8.4-10.2); CREATININE, SERUM 1.95 mg/dL (0.72-1.25); POTASSIUM 5.1 mmol/L (3.5-5.1); TOTAL PROTEIN 5.8 g/dL (6.5-8.1)
[2024-10-12] MEDS: INSULIN REGULAR, HUMAN 100 UNIT/1 ML SQ SCH (09:13)
[2024-10-12] MEDS: ALLOPURINOL 100 MG TAB PO SCH (09:16)
[2024-10-12] MEDS: PANTOPRAZOLE SOD 40 MG TABEC PO SCH (09:16)
[2024-10-12] MEDS: FERROUS SULFATE 325 MG TAB PO SCH (09:16)
[2024-10-12] MEDS: NIFEDIPINE CR 30 MG TAB PO SCH (09:17)
[2024-10-12] MEDS: ASPIRIN 81 MG CHEW TAB PO SCH (09:17)
[2024-10-12] MEDS: ASCORBIC ACID 500 MG TAB PO SCH (09:18)
[2024-10-12 17:14] LABS: HIV 1&2 AB SCREEN NON-REACTIVE (NONREACTIVE); HIV- 1 P24 AG SCREEN NON-REACTIVE (NONREACTIVE)
[2024-10-12 19:30] LABS: INFLUENZA A AG NEGATIVE (NEGATIVE); INFLUENZA B AG NEGATIVE (NEGATIVE)
[2024-10-12 19:31] LABS: CORONAVIRUS COVID-19 AG NEGATIVE (NEGATIVE)
[2024-10-13] VITALS (8 sets, daily range): BP systolic 119–132; BP diastolic 60–68; PULSE 63–84; RESP 17–18; TEMP 97.6–98.7; O2SAT 90–99
[2024-10-13 05:58] LABS: BASOPHILS % 0.3 % (0.0-1.0); EOSINOPHILS # (AUTO) 0.3 (0.0-0.4); EOSINOPHILS % 2.2 % (0.0-6.0); HEMATOCRIT 25.6 % (38.2-49.6); HEMOGLOBIN 7.5 g/dL (14.0-18.0); LYMPHOCYTES # (AUTO) 1.6 (1.0-3.2); LYMPHOCYTES % 11.8 % (18.0-39.1); MEAN CORPUSCULAR HGB CONC 29.3 g/dL (31-35); MEAN CORPUSCULAR VOLUME 88.9 fL (81-99); MONOCYTES # (AUTO) 0.7 (0.2-0.8); MONOCYTES % 5.2 % (4.4-11.3); NEUTROPHILS # (AUTO) 10.7 (2.1-6.9); NEUTROPHILS % 80.2 % (38.7-80.0); PLATELET COUNT 522 x10e3/uL (140-360); RED BLOOD COUNT 2.88 x10e6/uL (4.3-5.7); RED CELL DISTRIBUTION WIDTH 13.9 % (11.7-14.4)
[2024-10-13 06:15] LABS: WHITE BLOOD COUNT 13.38 x10e3/uL (4.8-10.8)
[2024-10-13 06:31] LABS: ALBUMIN 2.3 g/dL (3.5-5.0); ALBUMIN/GLOBULIN RATIO 0.6 (0.8-2.0); ANION GAP 17.6 mmol/L (8-16); BILIRUBIN,TOTAL 0.3 mg/dL (0.2-1.2); CALCIUM 8.9 mg/dL (8.4-10.2); CREATININE, SERUM 2.15 mg/dL (0.72-1.25); POTASSIUM 4.6 mmol/L (3.5-5.1); TOTAL PROTEIN 5.9 g/dL (6.5-8.1)
[2024-10-13] MEDS: METHYLPREDNISOLONE SOD SUCC 40 MG/ML VIAL 1ML IV SCH (10:54)
[2024-10-14] VITALS (10 sets, daily range): BP systolic 123–140; BP diastolic 65–74; PULSE 66–89; RESP 18–20; TEMP 97.4–97.7; O2SAT 92–99
[2024-10-14 05:55] LABS: ANION GAP 14.7 mmol/L (8-16); CALCIUM 8.6 mg/dL (8.4-10.2); CREATININE, SERUM 2.12 mg/dL (0.72-1.25); POTASSIUM 4.7 mmol/L (3.5-5.1)
[2024-10-14 08:47] LABS: BASOPHILS % 0.2 % (0.0-1.0); EOSINOPHILS # (AUTO) 0.1 (0.0-0.4); EOSINOPHILS % 0.6 % (0.0-6.0); HEMATOCRIT 21.6 % (38.2-49.6); LYMPHOCYTES # (AUTO) 1.2 (1.0-3.2); LYMPHOCYTES % 11.8 % (18.0-39.1); MEAN CORPUSCULAR HEMOGLOBIN 25.9 pg (28-32); MEAN CORPUSCULAR HGB CONC 30.6 g/dL (31-35); MONOCYTES # (AUTO) 0.7 (0.2-0.8); MONOCYTES % 6.3 % (4.4-11.3); NEUTROPHILS # (AUTO) 8.4 (2.1-6.9); NEUTROPHILS % 80.7 % (38.7-80.0); PLATELET COUNT 464 x10e3/uL (140-360); RED BLOOD COUNT 2.55 x10e6/uL (4.3-5.7); RED CELL DISTRIBUTION WIDTH 13.9 % (11.7-14.4); WHITE BLOOD COUNT 10.36 x10e3/uL (4.8-10.8)
[2024-10-14 08:56] LABS: HEMOGLOBIN 6.6 g/dL (14.0-18.0); MEAN CORPUSCULAR VOLUME 84.7 fL (81-99)
[2024-10-14 10:45] LABS: HEMATOCRIT 25.1 % (38.2-49.6); HEMOGLOBIN 7.8 g/dL (14.0-18.0)
[2024-10-14] MEDS: AZITHROMYCIN 250 MG TAB PO SCH (15:55)
[2024-10-14 23:37] LABS: MYCOPLASMA PNEUMO IGG <100 U/mL (0-99); MYCOPLASMA PNEUMO IGM <770 U/mL (0-769)
[2024-10-15 03:16] VITALS: BP 131/67; PULSE 65; RESP 18; TEMP 97.9; O2SAT 94
[2024-10-15 08:00] VITALS: BP 129/68; PULSE 70; RESP 18; TEMP 97.6; O2SAT 93
[2024-10-15 08:10] VITALS: PULSE 64; RESP 18; O2SAT 94
[2024-10-15 08:57] VITALS: BP 129/68; PULSE 70; RESP 18; TEMP 97.6; O2SAT 93
[2024-10-15 12:05] VITALS: BP 150/64; PULSE 71; RESP 20; TEMP 97.9; O2SAT 95
== END 2024-10-15 13:41 | disposition home or self-care (01) | DRG 871 ==
LOC: ER 20:01 → ERHOLD 10-11 00:12 → MED/SURG3 10-11 00:42
PROVIDERS: ADMIT Internal Medicine; ATTEND Internal Medicine
DX: A41.9 Sepsis, unspecified organism (principal); J18.9 Pneumonia, unspecified organism; J96.01 Acute respiratory failure with hypoxia; R65.20 Severe sepsis without septic shock; R59.9 Enlarged lymph nodes, unspecified; I48.0 Paroxysmal atrial fibrillation; Z79.01 Long term (current) use of anticoagulants; E11.22 Type 2 diabetes mellitus with diabetic chronic kidney disease; N18.9 Chronic kidney disease, unspecified; Z79.85 Long-term (current) use of injectable non-insulin antidiabetic drugs; D63.8 Anemia in other chronic diseases classified elsewhere; D50.9 Iron deficiency anemia, unspecified; Z86.73 Personal history of transient ischemic attack (TIA), and cerebral infarction without residual deficits; Z85.528 Personal history of other malignant neoplasm of kidney; Z85.118 Personal history of other malignant neoplasm of bronchus and lung; Z92.3 Personal history of irradiation; Z92.21 Personal history of antineoplastic chemotherapy; Z86.16 Personal history of COVID-19; Z79.82 Long term (current) use of aspirin; Z79.899 Other long term (current) drug therapy
CPT/HCPCS: 0223U; 36415; 71260; 74177; 80048; 80053; 82550; 82553; 82607; 82746; 82948; 83036; 83518; 83540; 83605; 83690; 83880; 84466; 84484; 85014; 85018; 85025; 85045; 86738; 87040; 87086; 87390; 87400; 87449; 93005; 94760; 94799; 99252; 99285; G0433; G0435; J2405; J2543; J2919; J7030; J7050; Q9967